=== PATIENT | male | born 1975 | race Hispanic/Latino ===

== ENCOUNTER 2021-03-07 22:55 | Emergency (ER) | payer SELFPAY ==
[2021-03-08] MEDS ORDERED: ASPIRIN 325 MG TAB PO ONE (03:03)
--- NOTE | 2021-03-08 03:55 | XRay Report ---
CHEST 2 VIEWS INDICATION / CLINICAL INFORMATION: Chest pain. COMPARISON: None available. FINDINGS: SUPPORT DEVICES: None. HEART / MEDIASTINUM: No significant abnormality. LUNGS / PLEURA: No significant pulmonary or pleural abnormality. No pneumothorax. ADDITIONAL FINDINGS: No significant additional findings. IMPRESSION: 1. No acute findings. Signer Name: Roseanne Barnes MD Signed: 03/08/2021 3:51 AM Workstation Name: [id number]
[2021-03-08 03:56] LABS: Basophils % (Auto) 0.7 % (0.0-1.8); Eosinophils # (Auto) 0.1 K/mm3 (0.0-0.4); Eosinophils % (Auto) 1.4 % (0.0-4.3); Hematocrit 47.9 % (35.5-45.6); Hemoglobin 16.6 gm/dl (11.8-15.2); Lymphocytes % (Auto) 15.1 % (13.4-35.0); Mean Corpuscular HGB Conc 35 % (32-34); Mean Corpuscular Volume 89 fl (84-94); Monocytes # (Auto) 0.6 K/mm3 (0.0-0.8); Monocytes % (Auto) 9.6 % (0.0-7.3); Platelet Count 107 K/mm3 (140-440); Red Blood Count 5.39 M/mm3 (3.65-5.03); Red Cell Distribution Width 13.9 % (13.2-15.2)
[2021-03-08 04:19] LABS: Alanine Aminotransferase 50 units/L (7-56); Albumin 4.8 g/dL (3.9-5); Blood Urea Nitrogen 9 mg/dL (9-20); Calcium 9.2 mg/dL (8.4-10.2); Hemolysis Index 7
[2021-03-08 04:22] LABS: BUN/Creatinine Ratio 15
--- NOTE | 2021-03-08 11:14 | Electrocardiograph Report ---
[facility] Test Date: 2021-03-08 Test Time: 03:28:20 Pat Name: YOLANDA ROMAN Department: Room: Gender: M [employer] Sales Representative: SARBJIT : 1975 Requested By: ED DOC Order Number: [id number] Reading MD: Bea Torres Measurements Intervals [place] Rate: 67 P: 42 [place]: 155 QRS: 60 QRSD: 106 T: 47 QT: 428 QTc: 451 Interpretive Statements Sinus rhythm Normal ECG No previous ECG available for comparison Electronically Signed On 03-08-2021 11:13:59 EDT by Bea Torres
--- NOTE | 2021-03-08 11:19 | Electrocardiograph Report ---
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
[2021-03-08] MEDS ORDERED: SODIUM CHLORIDE 0.9% 1000 ML 1,000 ML IV ONE (20:32)
--- NOTE | 2021-03-08 20:34 | Emergency Department Report ---
ED Chest Pain HPI - General Chief Complaint: Chest Pain Stated Complaint: HIGH BP Time Seen by Provider: 03/08/21 20:01 Source: patient, EMS Mode of arrival: Ambulatory Limitations: Language Barrier - History of Present Illness Initial Comments: 45-year-old male with history of morbid obesity and hypertension on no medications presents complaining of proximately 12 hours of constant chest tightness and intermittent lightheadedness. The patient states that the entire day prior to arrival at our emergency room he was feeling a tightness in the center of his chest which was nonradiating. It was not associated with any other symptoms other than feeling a bit lightheaded for most of the day. He believes that his lightheadedness may be due to his blood pressure and so he measured his blood pressure at home and it was in the 180s systolic. Because of his elevated blood pressure he decided to come in for further evaluation. He states that after being in the waiting room for several hours his chest tightness eventually resolved. However it came back around 10 AM and has been constant since. He denies any recent fever/chills, headache, vision change, neck pain, cough, shortness of breath, abdominal pain, nausea/vomiting, dysuria, focal weakness, sensory changes, dizziness, or any other complaints. He has not tried anything for his symptoms. There are no known aggravating or alleviating factors. Severity scale (0 -10): 0 - Related Data Allergies Allergy/AdvReac Type Severity Reaction Status Date / Time No Known Allergies Allergy Unverified 03/08/21 02:54 Heart Score - HEART Score History: Slightly suspicious EKG: Normal Age: 45-65 Risk factors: 1-2 risk factors Troponin: < normal limit HEART Score: 2 - EKG Read Time Time EKG Completed: 11:02 EKG Read Time: 11:12 ED Review of Systems ROS: Stated complaint: HIGH BP Other details as noted in HPI Constitutional: denies: chills, fever Eyes: denies: eye pain, vision change ENT: denies: throat pain, congestion Respiratory: denies: cough, shortness of breath Cardiovascular: chest pain. denies: palpitations, edema, syncope Gastrointestinal: denies: abdominal pain, nausea, vomiting, diarrhea, constipation Genitourinary: denies: dysuria, frequency Musculoskeletal: denies: back pain, joint swelling Skin: denies: rash, lesions Neurological: other (lightheadedness). denies: headache, weakness, numbness, paresthesias, abnormal gait, vertigo Psychiatric: denies: anxiety ED Past Medical Hx - Past Medical History Previous Medical History?: Yes Hx Hypertension: Yes - Surgical History Past Surgical History?: No ED Physical Exam - General Limitations: Language Barrier - Other Other exam information: GENERAL: Morbidly obese male. No acute distress HEAD: Normocephalic. No obvious signs of trauma. ENT: Dry mucous membranes. EYES: Extraocular movements are intact. Pupils are equal round and reactive to light bilaterally NECK: Supple. Full ROM is intact. Trachea is midline. LUNGS: Nonlabored breathing. Equal chest rise bilaterally. Clear to auscultation bilaterally. CARDIOVASCULAR: Regular rate and rhythm. No murmurs or rubs. VASCULAR: Cap refill < 2 seconds. 2+ peripheral pulses bilaterally ABDOMEN: Abdomen is soft and nondistended. There is no significant tenderness, guarding or rebound. SKIN: Skin is warm and dry NEURO: Patient is awake, alert, and oriented. 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 No focal deficits. Normal motor and sensory exam throughout. Normal speech. MUSCULOSKELETAL: No obvious deformities. No significant tenderness. Normal ROM throughout. BACK/SPINE: No midline tenderness or step-offs of the C/T/L spine. No costovertebral angle tenderness. ED Course Vital Signs 03/08/21 03/08/21 03/08/21 02:55 10:33 19:53 Temperature 98.4 F 98.2 F Pulse Rate 79 45 L 63 Respiratory 20 20 20 Rate Blood Pressure 167/90 192/104 183/97 [Right] O2 Sat by Pulse 93 94 96 Oximetry 03/08/21 03/08/21 03/09/21 21:00 23:00 01:16 Temperature Pulse Rate 63 65 Respiratory 20 20 Rate Blood Pressure 165/89 136/64 [Right] O2 Sat by Pulse 97 99 98 Oximetry ORTIZ score - Ortiz Score Age > 65: (0) No Aspirin use within the Past 7 Days: (0) No 3 or more CAD Risk Factors: (0) No 2 or more Angina events in past 24 hrs: (1) Yes Known CAD with more than 50% Stenosis: (0) No Elevated Cardiac Markers: (0) No ST Deviation Greater than 0.5mm: (0) No ORTIZ Score: 1 ED Medical Decision Making - Lab Data Result diagrams: 03/08/21 03:19 03/08/21 03:19 Lab Results 03/08/21 03/08/21 03/08/21 Range/Units 03:19 03:19 06:47 WBC 6.3 (4.5-11.0) K/mm3 RBC 5.39 H (3.65-5.03) M/mm3 Hgb 16.6 H (11.8-15.2) gm/dl Hct 47.9 H (35.5-45.6) % MCV 89 (84-94) fl MCH 31 (28-32) pg MCHC 35 H (32-34) % RDW 13.9 (13.2-15.2) % Plt Count 107 L (140-440) K/mm3 Lymph % (Auto) 15.1 (13.4-35.0) % [place] % (Auto) 9.6 H (0.0-7.3) % Eos % (Auto) 1.4 (0.0-4.3) % Baso % (Auto) 0.7 (0.0-1.8) % Lymph # (Auto) 1.0 L (1.2-5.4) K/mm3 [place] # (Auto) 0.6 (0.0-0.8) K/mm3 Eos # (Auto) 0.1 (0.0-0.4) K/mm3 Baso # (Auto) 0.0 (0.0-0.1) K/mm3 Seg Neutrophils % 73.2 H (40.0-70.0) % Seg Neutrophils # 4.6 (1.8-7.7) K/mm3 Sodium 141 (137-145) mmol/L Potassium 4.2 (3.6-5.0) mmol/L Chloride 99.0 (98-107) mmol/L Carbon Dioxide 27 (22-30) mmol/L Anion Gap 19 mmol/L BUN 9 (9-20) mg/dL Creatinine 0.6 L (0.8-1.3) mg/dL Estimated GFR > 60 ml/min BUN/Creatinine Ratio 15 % Glucose 109 H (75-100) mg/dL Calcium 9.2 (8.4-10.2) mg/dL Total Bilirubin 0.90 (0.1-1.2) mg/dL AST 94 H (5-40) units/L ALT 50 (7-56) units/L Alkaline Phosphatase 135 H (35-129) units/L Troponin T < 0.010 < 0.010 (0.00-0.029) ng/mL Total Protein 7.9 (6.3-8.2) g/dL Albumin 4.8 (3.9-5) g/dL Albumin/Globulin Ratio 1.5 % Lipase (13-60) units/L 03/08/21 03/08/21 Range/Units 10:57 20:37 WBC (4.5-11.0) K/mm3 RBC (3.65-5.03) M/mm3 Hgb (11.8-15.2) gm/dl Hct (35.5-45.6) % MCV (84-94) fl MCH (28-32) pg MCHC (32-34) % RDW (13.2-15.2) % Plt Count (140-440) K/mm3 Lymph % (Auto) (13.4-35.0) % [place] % (Auto) (0.0-7.3) % Eos % (Auto) (0.0-4.3) % Baso % (Auto) (0.0-1.8) % Lymph # (Auto) (1.2-5.4) K/mm3 [place] # (Auto) (0.0-0.8) K/mm3 Eos # (Auto) (0.0-0.4) K/mm3 Baso # (Auto) (0.0-0.1) K/mm3 Seg Neutrophils % (40.0-70.0) % Seg Neutrophils # (1.8-7.7) K/mm3 Sodium (137-145) mmol/L Potassium (3.6-5.0) mmol/L Chloride (98-107) mmol/L Carbon Dioxide (22-30) mmol/L Anion Gap mmol/L BUN (9-20) mg/dL Creatinine (0.8-1.3) mg/dL Estimated GFR ml/min BUN/Creatinine Ratio % Glucose (75-100) mg/dL Calcium (8.4-10.2) mg/dL Total Bilirubin (0.1-1.2) mg/dL AST (5-40) units/L ALT (7-56) units/L Alkaline Phosphatase (35-129) units/L Troponin T < 0.010 < 0.010 (0.00-0.029) ng/mL Total Protein (6.3-8.2) g/dL Albumin (3.9-5) g/dL Albumin/Globulin Ratio % Lipase 35 (13-60) units/L - EKG Data -: EKG Interpreted by Me - EKG Data 03/09/21 02:31 EKG #1 obtained at 0328: Normal sinus rhythm. Normal axis. Normal intervals. No ectopy. No significant ST segment or T wave abnormalities. EKG #2 obtained at 1102: Normal sinus rhythm. Normal axis. Normal intervals. No ectopy. No significant ST segment or T wave abnormalities. - Radiology Data Chest x-ray shows no acute abnormalities - Medical Decision Making 45-year-old male with history of hypertension not on meds presents complaining of 12 hours of constant chest tightness and intermittent lightheadedness. Denies room spinning dizziness/vertigo. His chest tightness is nonradiating and not associated with any other symptoms. He is afebrile and with grossly normal vital signs with the exception of elevated blood pressure and oxygen saturation of 93-94 which I believe to have been entered in error given that the patient always maintained an oxygen saturation of 97% or greater on room air for the entire time that he was under my care. Physical examination reveals a morbidly obese male in no acute distress. He does have very dry mucous membranes. His lungs are clear to auscultation throughout and heart sounds are normal. He has 2+ peripheral pulses in all 4 extremities. He has no abdominal tenderness and no CVA tenderness. He has a nonfocal neurologic exam. The patient had labs drawn prior to my evaluation and they have resulted revealing no significant leukocytosis or anemia. He does have an elevated hemoglobin of 16.6 which is consistent with hemoconcentration due to dehydration. Kidney function is normal and there are no significant electrolyte abnormalities. He does have slightly elevated AST of 94 with ALT of 50. He has had 3 - serial troponins. His chest x-ray has been performed and reveals no acute abnormalities. The patient's heart score is 2. Aspirin was administered. At the time that I saw the miryam fongmio, he had been in the waiting room or the emergency department for several hours. The patient reported that his chest pain had gone away but returned and then went away again when I examined him. Given that he appears very dehydrated we will give 1 L of IV fluids. In addition we will add on 1 additional troponin as well as a lipase after the patient reported to me that he drinks approximately 8 beers per day after I spoke to him about his mildly elevated AST. Repeat troponin and lipase are negative. The patient received the liter of fluids and reported feeling better. He was explained the results of his diagnostic tests as well as the importance of close follow-up for likely initi ation of antihypertensive medications given his elevated blood pressure. I explained that given that the patient will require follow-up and given that I have only seen his blood pressure while he has been in a highly stressful environment and with chest pain, he will need to be reassessed by a primary care physician who can follow him long-term and determine the need for medication changes. I also recommended to the patient that he cut down on his alcohol use. We have faxed a referral to the [facility] [place] for follow-up with a clay thrower. The patient was given a referral for follow-up with a primary care doctor who speaks Korean. He was given strict return precautions. Patient expressed understanding agreement with the plan of care. Critical care attestation.: If time is entered above; I have spent that time in minutes in the direct care of this critically ill patient, excluding procedure time. ED Disposition Clinical Impression: Chest pain, Hypertension, Dehydration, Elevated AST (SGOT) Disposition: DC-01 TO HOME OR SELFCARE Is pt being admited?: No Condition: Stable Instructions: Liver Function Tests, Nonspecific Chest Pain, Adult, Hypertension, Adult, Dehydration, Adult, Hypertension (ED) Additional Instructions: A referral has been sent to the [facility]. They should give you a call to schedule an appointment to see a heart doctor. If you do not receive a call in the next 2 days please call the number listed for Dr. Melendez Referrals: ZEYAD ESPARZA MD [Staff Physician] - 2-3 Days PHIL MELENDEZ MD [Staff Physician] - 3-5 Days Print Language: GREENLANDIC
[2021-03-09 01:17] VITALS: BP 136/64
== END 2021-03-09 02:00 | disposition home or self-care (01) ==
LOC: ED 22:55
DX: R07.89 Other chest pain (principal); I10 Essential (primary) hypertension; E86.0 Dehydration; R74.01 Elevation of levels of liver transaminase levels
CPT/HCPCS: 36415; 71046; 80053; 83690; 84484; 85025; 93005; 96360; 96361; 99284; J7030